=== PATIENT | female | born 1985 | race Two or more races ===

== ENCOUNTER → 2016-06-30 | Outpatient (CLI) | payer OTHER ==
--- NOTE | ~2016-06-30 | US128 ---
[id number] [facility]. [facility] [address]. [place], [place] [address] [id number] MR#: [id number] Acc #: [id number] NAME: PHILOMENA TRACY : 1985 SEX: F STUDY DATE/TIME: 06/30/2016 15:40 UNIT: [facility] ROOM: STUDY DESCRIPTION: Thyroid Attending Physician: Nichole Maki M.D. Referring Physician: Nichole Maki M.D. Ordering Physician: Nichole Maki M.D. Primary Care Physician: Nichole Maki M.D. MEDICAL IMAGING REPORT This report is preliminary unless electronic signature is present EXAM Thyroid ultrasound. 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 FINDINGS The gland is symmetric in size and echotexture. It is overall normal in volume and vascularity. IMPRESSION Normal thyroid ultrasound. Dictated by... Boaz Evans M.D. THIS IS AN ELECTRONICALLY VERIFIED REPORT Boaz Evans M.D. at 07/01/2016 4:12 PM SANTOS/ajay TD: 07/01/2016 12:05 JOB #: [id number] MEDICAL IMAGING REPORT COPY
== END | disposition home or self-care (01) ==
LOC: CGUS 14:58
DX: E04.9 Nontoxic goiter, unspecified (principal)
CPT/HCPCS: 76536